=== PATIENT | female | born 1980 | race Caucasian/White ===

== ENCOUNTER → 2020-03-15 | Outpatient (CLI) | payer BC | END | disposition home or self-care (01) | LOC: LABWHC1 16:14 | PROVIDERS: ATTEND Internal Medicine | DX: R05 Cough (principal); R53.83 Other fatigue | CPT/HCPCS: U0003; C9803 ==

== ENCOUNTER 2021-03-29 10:16 | Emergency (ER) | payer BC ==
[2021-03-29 10:23] VITALS: RESP 18
[2021-03-29] MEDS: ACETAMINOPHEN TAB 500 MG TAB PO STA (11:25)
[2021-03-29] MEDS: ONDANSETRON 4 MG/2 ML VIAL IVP STA (11:25)
[2021-03-29] MEDS: SODIUM CHLORIDE 0.9% 1,000 ML IV STA (11:26)
[2021-03-29 11:43] LABS: Basophils % (A) 0 %; Eosinophils % (A) 0 %; HCT 37.6 % (34.0-46.0); HGB 12.6 gm/dL (11.4-16.0); Lymphocytes # (A) 0.6 k/uL (1.0-4.8); Lymphocytes % (A) 11 %; MCH 31.6 pg (25.0-35.0); MCHC 33.5 g/dL (31.0-37.0); MCV 94.4 fL (80.0-100.0); Mean Platelet Volume 8.6; Monocytes # (A) 0.2 k/uL (0-1.0); Monocytes % (A) 3 %; Neutrophils # (A) 4.5 k/uL (1.3-7.7); Neutrophils % (A) 85 %; Platelet Count 188 k/uL (150-450); RBC 3.98 m/uL (3.80-5.40); RDW 11.9 % (11.5-15.5); WBC 5.2 k/uL (3.8-10.6)
[2021-03-29 12:11] LABS: ALT 129 U/L (4-34); AST 115 U/L (14-36); African American GFR (CKD) >90 (>60 ml/min/1.73 sqM); Albumin 3.9 g/dL (3.5-5.0); Alkaline Phosphatase 146 U/L (38-126); Anion Gap 9 mmol/L; Blood Urea Nitrogen 8 mg/dL (7-17); Calcium 8.7 mg/dL (8.4-10.2); Carbon Dioxide 24 mmol/L (22-30); Chloride 102 mmol/L (98-107); Glucose 108 mg/dL (74-99); Non-African American GFR(CKD) >90 (>60 ml/min/1.73 sqM); Potassium 3.8 mmol/L (3.5-5.1); Sodium 135 mmol/L (137-145); Total Bilirubin 0.5 mg/dL (0.2-1.3)
[2021-03-29] MEDS: BAMLANIVIMAB (EUA) 700 MG, ETESEVIMAB (EUA) 1,400 MG in SODIUM CHLORIDE 0.9% 100 ML IVPB ONE (12:38)
[2021-03-29 12:40] VITALS: TEMP 100.7
--- NOTE | 2021-03-29 12:53 | ED ---
General Adult HPI - General Chief complaint: Upper Respiratory Infection Stated complaint: Covid+/pneumonia Time Seen by Provider: 03/29/21 10:40 Source: patient, RN notes reviewed Mode of arrival: ambulatory Limitations: no limitations - History of Present Illness Initial comments: 41-year-old female presents to the emergency room for a chief complaint of weakness. Patient states she it has had COVID-19 for about 8 days now. Tested +7 days ago. Patient states that she is coughing and has a headache. She just feels weak and unwell. She also some nausea and body aches. States that her doctor tried to get her the antibody infusion but she never heard back.Patient has no other complaints at this time including shortness of breath, chest pain, abdominal pain, nausea or vomiting, headache, or visual changes. - Related Data Home Medications Medication Instructions Recorded Confirmed ALPRAZolam [Xanax] 12/25/15 12/25/15 Levothyroxine Sodium [Tirosint] 12/25/15 Venlafaxine HCl [Effexor XR] 12/25/15 Previous Rx's Medication Instructions Recorded Hydrocodone/Acetaminophen [[place] 1 each PO Q6HR PRN #20 tab 12/25/15 5-325] Ibuprofen [Motrin] 600 mg PO Q6HR PRN #40 day 12/25/15 Tamsulosin [Flomax] 0.4 mg PO DAILY 3 Days 12/25/15 Allergies Allergy/AdvReac Type Severity Reaction Status Date / Time erythromycin base Allergy Intermediate Unknown Verified 03/29/21 10:23 Review of Systems ROS Statement: Those systems with pertinent positive or pertinent negative responses have been documented in the HPI. ROS Other: All systems not noted in ROS Statement are negative. Past Medical History Past Medical History: Asthma History of Any Multi-Drug Resistant Organisms: None Reported Past Surgical History: Section, Hysterectomy Past Psychological History: Anxiety Smoking Status: Never smoker Past Alcohol Use History: Occasional Past Drug Use History: None Reported General Exam Limitations: no limitations General appearance: alert, in no apparent distress Head exam: Present: atraumatic Eye exam: Present: normal appearance, PERRL, EOMI. Absent: scleral icterus, conjunctival injection ENT exam: Present: normal exam, mucous membranes moist Neck exam: Present: normal inspection, full ROM. Absent: tenderness Respiratory exam: Present: normal lung sounds bilaterally. Absent: respiratory distress, wheezes Cardiovascular Exam: Present: regular rate, normal rhythm, normal heart sounds Course Vital Signs 03/29/21 03/29/21 10:19 12:23 Temperature 99.7 F H 100.7 F H Pulse Rate 99 82 Respiratory 18 18 Rate Blood Pressure 133/86 105/65 O2 Sat by Pulse 97 95 Oximetry Medical Decision Making - Medical Decision Making vitals are stable. Patient is well-appearing. lymphocytopenia likely secondary to Covid infection. Transaminitis also likely secondary to COVID-19. Patient was given antibody infusion. Strict return parameters discussed. Patient will get her blood work repeated. She will return here for any worsening symptoms. - Lab Data Result diagrams: 03/29/21 11:28 03/29/21 11:28 Lab Results 03/29/21 03/29/21 03/29/21 Range/Units 11:28 11:28 11:28 WBC 5.2 (3.8-10.6) k/uL RBC 3.98 (3.80-5.40) m/uL Hgb 12.6 (11.4-16.0) gm/dL Hct 37.6 (34.0-46.0) % MCV 94.4 (80.0-100.0) fL MCH 31.6 (25.0-35.0) pg MCHC 33.5 (31.0-37.0) g/dL RDW 11.9 (11.5-15.5) % Plt Count 188 (150-450) k/uL MPV 8.6 Neutrophils % 85 % Lymphocytes % 11 % Monocytes % 3 % Eosinophils % 0 % Basophils % 0 % Neutrophils # 4.5 (1.3-7.7) k/uL Lymphocytes # 0.6 L (1.0-4.8) k/uL Monocytes # 0.2 (0-1.0) k/uL Eosinophils # 0.0 (0-0.7) k/uL Basophils # 0.0 (0-0.2) k/uL Sodium 135 L (137-145) mmol/L Potassium 3.8 (3.5-5.1) mmol/L Chloride 102 (98-107) mmol/L Carbon Dioxide 24 (22-30) mmol/L Anion Gap 9 mmol/L BUN 8 (7-17) mg/dL Creatinine 0.54 (0.52-1.04) mg/dL Est GFR (CKD-EPI)AfAm >90 (>60 ml/min/1.73 sqM) Est GFR (CKD-EPI)NonAf >90 (>60 ml/min/1.73 sqM) Glucose 108 H (74-99) mg/dL Calcium 8.7 (8.4-10.2) mg/dL Total Bilirubin 0.5 (0.2-1.3) mg/dL AST 115 H (14-36) U/L ALT 129 H (4-34) U/L Alkaline Phosphatase 146 H (38-126) U/L Total Protein 7.0 (6.3-8.2) g/dL Albumin 3.9 (3.5-5.0) g/dL Coronavirus (PCR) Detected A (Not Detectd) Disposition Clinical Impression: COVID, Transaminitis Disposition: HOME SELF-CARE Condition: Good Instructions (If sedation given, give patient instructions): Coronavirus Disease 2019 (COVID-19) Additional Instructions: Please follow up with primary care in 1-2 days. Return to the ER for any worsening symptoms such as shortness of breath. Is patient prescribed a controlled substance at d/c from ED?: No Referrals: Lisa Padron MD [Primary Care Provider] - 1-2 days Time of Disposition: 12:52
[2021-03-29] MEDS ORDERED: IBUPROFEN 600 MG TAB PO STA (12:55)
[2021-03-29] MEDS: SODIUM CHLORIDE 0.9% 50 ML IVPB ONE (13:09)
[2021-03-29 14:14] VITALS: BP 113/78; PULSE 88
== END 2021-03-29 14:14 | disposition home or self-care (01) ==
LOC: EC 10:16
DX: U07.1 COVID-19 (principal); R74.01 Elevation of levels of liver transaminase levels; J45.909 Unspecified asthma, uncomplicated; F41.9 Anxiety disorder, unspecified; Z79.890 Hormone replacement therapy; Z79.1 Long term (current) use of non-steroidal anti-inflammatories (NSAID); Z79.899 Other long term (current) drug therapy
CPT/HCPCS: 36415; 80053; 85025; 87635; 99285; 96374; 96361; J2405; J3490

== ENCOUNTER → 2021-07-23 | Outpatient (CLI) | payer BC ==
--- NOTE | 2021-07-24 11:28 | MM ---
Reason for exam: screening (asymptomatic). Baseline mammogram. History: Took hormonal contraceptives for 6 years. Physical Findings: A clinical breast exam by your physician is recommended on an annual basis and results should be correlated with mammographic findings. MG Screening Mammo w CAD Bilateral CC and MLO view(s) were taken. There are scattered fibroglandular densities. There is no discrete abnormality. No significant changes when compared with prior studies. ASSESSMENT: Negative, BI-RAD 1 RECOMMENDATION: Routine screening mammogram of both breasts in 1 year.
== END | disposition home or self-care (01) ==
LOC: RADMAMWWP 13:55
PROVIDERS: ATTEND Internal Medicine
DX: Z12.31 Encounter for screening mammogram for malignant neoplasm of breast (principal)
CPT/HCPCS: 77067